=== PATIENT | female | born 1995 | race African-American/Black ===

== ENCOUNTER 2019-03-18 12:01 | Emergency (ER) | payer MEDICAID, OTHER ==
[~2019-03-18] VITALS: Ht 167.6 cm; Wt 50.0 kg
[2019-03-18 12:15] VITALS: BP 121/74
[2019-03-18] MEDS ORDERED: PREDNISONE 20MG TABLET PO ONE (13:45)
== END 2019-03-18 14:18 | disposition home or self-care (01) ==
LOC: ER 12:01
DX: J02.9 Acute pharyngitis, unspecified (principal)
CPT/HCPCS: 87070; 87430; 99283; J7512

== ENCOUNTER 2019-05-09 08:34 | Emergency (ER) | payer OTHER ==
[~2019-05-09] VITALS: Ht 167.6 cm; Wt 58.0 kg
[2019-05-09] MEDS ORDERED: ACETAMINOPHEN 325MG TABLET PO PRN (09:15)
[2019-05-09 09:52] LABS: CLARITY URINE CLEAR (CLEAR); COLOR URINE YELLOW (YELLOW); KETONES URINE 1+ (NEGATIVE); LEUKOCYTE ESTERASE URINE TRACE (NEGATIVE); NITRITE URINE NEGATIVE (NEGATIVE); OCCULT BLOOD URINE NEGATIVE (NEGATIVE); PH URINE 6.5 (4.5-8.0); PROTEIN URINE NEGATIVE (NEGATIVE); SPECIFIC GRAVITY URINE 1.024 (1.005-1.030); UROBILINOGEN URINE 0.2 E.U./dL (0.2-1.0)
[2019-05-09 12:52] VITALS: BP 122/76
== END 2019-05-09 12:53 | disposition home or self-care (01) ==
LOC: ER 08:34
DX: O23.41 Unspecified infection of urinary tract in pregnancy, first trimester (principal); O20.8 Other hemorrhage in early pregnancy; Z3A.01 Less than 8 weeks gestation of pregnancy
CPT/HCPCS: 36415; 76801; 76817; 81003; 81025; 84702; 86850; 86900; 86901; 87086; 99284; Z7610

== ENCOUNTER 2019-05-11 09:24 | Emergency (ER) | payer OTHER ==
[~2019-05-11] VITALS: Ht 167.6 cm; Wt 52.0 kg
[2019-05-11 10:18] LABS: BASOPHILS % 0.5 % (0.0-2.0); EOSINOPHILS % 0.7 % (0.0-5.0); HEMATOCRIT. 39.7 % (36.0-48.0); HEMOGLOBIN. 13.6 g/dL (12.0-16.0); LYMPHOCYTES % 18.7 % (20.0-50.0); MEAN CORPUSCULAR VOLUME 96.1 fL (81.0-99.0); MONOCYTES % 6.1 % (2.0-8.0); PLATELET 195 x1000/uL (130-400); RED BLOOD CELL COUNT 4.13 mill/uL (4.2-5.4)
[2019-05-11] MEDS ORDERED: SODIUM CHLORIDE 0.9% 1,000 ML IV ONE ×2 (10:26→12:36)
[2019-05-11 10:27] LABS: CHLORIDE 109 mEq/L (98-107)
[2019-05-11 10:50] LABS: B-HCG QUANTITATIVE 6337 mIU/mL (<3)
[2019-05-11 11:36] LABS: CLARITY URINE CLEAR (CLEAR); COLOR URINE YELLOW (YELLOW); KETONES URINE 4+ (NEGATIVE); LEUKOCYTE ESTERASE URINE NEGATIVE (NEGATIVE); NITRITE URINE NEGATIVE (NEGATIVE); OCCULT BLOOD URINE 1+ (NEGATIVE); PH URINE 6.5 (4.5-8.0); PROTEIN URINE NEGATIVE (NEGATIVE); SPECIFIC GRAVITY URINE 1.027 (1.005-1.030)
[2019-05-11 16:20] VITALS: BP 108/67
== END 2019-05-11 16:25 | disposition home or self-care (01) ==
LOC: ER 09:24
DX: O20.0 Threatened abortion (principal); E86.0 Dehydration; O26.891 Other specified pregnancy related conditions, first trimester; Z3A.01 Less than 8 weeks gestation of pregnancy
CPT/HCPCS: 36415; 76801; 76817; 80053; 81003; 81025; 84702; 85025; 86850; 86900; 86901; 96360; 96361; 99284; J7030

== ENCOUNTER 2019-05-31 08:31 | Emergency (ER) | payer OTHER ==
[~2019-05-31] VITALS: Ht 167.6 cm; Wt 52.0 kg
[2019-05-31 11:22] LABS: BASOPHILS % 0.2 % (0.0-2.0); EOSINOPHILS % 0.7 % (0.0-5.0); HEMATOCRIT. 36.6 % (36.0-48.0); HEMOGLOBIN. 12.7 g/dL (12.0-16.0); LYMPHOCYTES % 18.2 % (20.0-50.0); MEAN CORPUSCULAR HEMOGLOBIN 32.6 pg (28.0-32.0); MEAN CORPUSCULAR VOLUME 94.1 fL (81.0-99.0); MEAN PLATELET VOLUME 8.2 fl (7.4-10.4); MONOCYTES % 7.2 % (2.0-8.0); NEUTROPHILS % 73.7 % (40.0-76.0); PLATELET 197 x1000/uL (130-400); RED BLOOD CELL COUNT 3.89 mill/uL (4.2-5.4); RED CELL DISTRIBUTION WIDTH 12.8 % (11.6-14.6)
[2019-05-31 11:26] LABS: CHLORIDE 106 mEq/L (98-107)
[2019-05-31 11:50] LABS: B-HCG QUANTITATIVE 61572 mIU/mL (<3)
[2019-05-31 11:53] LABS: CLARITY URINE CLOUDY (CLEAR); COLOR URINE YELLOW (YELLOW); KETONES URINE 1+ (NEGATIVE); LEUKOCYTE ESTERASE URINE 1+ (NEGATIVE); NITRITE URINE NEGATIVE (NEGATIVE); OCCULT BLOOD URINE 3+ (NEGATIVE); PH URINE 6.5 (4.5-8.0); PROTEIN URINE 1+ (NEGATIVE)
[2019-05-31 12:24] VITALS: BP 120/80
== END 2019-05-31 12:25 | disposition home or self-care (01) ==
LOC: ER 08:31
DX: O20.0 Threatened abortion (principal); O23.41 Unspecified infection of urinary tract in pregnancy, first trimester; Z3A.08 8 weeks gestation of pregnancy
CPT/HCPCS: 36415; 76801; 81003; 81025; 84702; 86850; 86900; 99284